=== PATIENT | female | born 1970 | race Asian ===

== ENCOUNTER 2016-12-13 06:30 | Day surgery (SDC) | payer BC ==
[~2016-12-13] VITALS: Ht 162.6 cm; Wt 99.8 kg
[~2016-12-13 06:30] MED LIST: ATEN-41 PO; LISI10TA5 PO; NOR10 PO
[2016-12-13] MEDS ORDERED: LR 1,000 ML IV SCH (10:24)
[2016-12-13] MEDS ORDERED: METOCLOPRAMIDE HCL 10 MG/2 ML VIAL IVP PRN (10:30)
[2016-12-13] MEDS ORDERED: MORPHINE 4 MG/ML INJ. SYRINGE IVP PRN ×3 (10:30)
[2016-12-13] MEDS ORDERED: ONDANSETRON HCL 4 MG/2 ML VIAL IVP PRN (11:15)
[2016-12-13 12:45] VITALS: BP_SYST 103
[2016-12-13] MEDS ORDERED: NORMAL SALINE 5 ML DISP.SYRIN IVF SCH (14:00)
[2016-12-13] MEDS: DEXAMETHASONE SOD PHOSPHATE 4 MG/ML VIAL IVP SCH (16:12)
[2016-12-13] MEDS: HYDROcodone/ACETAMIN 5-325 MG TAB (NORCO/ VICODIN) PO PRN ×2 (16:13→22:43)
[2016-12-13 16:24] VITALS: BP_SYST 127
[2016-12-13] MEDS: NORMAL SALINE 5 ML DISP.SYRIN IVF SCH ×2 (18:01→22:44)
[2016-12-13 21:48] VITALS: BP_SYST 127
[2016-12-13 23:37] VITALS: BP_SYST 128
[2016-12-14] MEDS: DEXAMETHASONE SOD PHOSPHATE 4 MG/ML VIAL IVP SCH (00:35)
[2016-12-14 03:28] VITALS: BP_SYST 116
[2016-12-14] MEDS: HYDROcodone/ACETAMIN 5-325 MG TAB (NORCO/ VICODIN) PO PRN (07:56)
[2016-12-14 08:00] VITALS: BP_SYST 125
[2016-12-14] MEDS ORDERED: HYDR-1189 PO ×2 (09:04→09:05)
[2016-12-14] MEDS ORDERED: AMOX-426 PO (09:06)
[2016-12-14 10:54] VITALS: BP_SYST 125
== END 2016-12-14 06:58 | disposition home or self-care (01) ==
LOC: SMU 06:30 → SDS 06:30 → SMU 07:47 → SDS 12-14 06:58
PROVIDERS: ATTEND Otolaryngology Plastic Surgery within the Head & Neck
DX: D11.0 Benign neoplasm of parotid gland (principal); I10 Essential (primary) hypertension; E66.01 Morbid (severe) obesity due to excess calories; G43.909 Migraine, unspecified, not intractable, without status migrainosus
CPT/HCPCS: 42415; 87081 ×2; 88307; 94010; J1100 ×2; J2405; J7120